=== PATIENT | male | born 1985 | race African-American/Black ===

== ENCOUNTER 2020-10-29 20:41 | Emergency (ER) | payer OTHER ==
[~2020-10-29] VITALS: Ht 193 cm; Wt 117.9 kg
[2020-10-29 21:00] VITALS: BP 152/87
--- NOTE | 2020-10-29 21:00 | NUR ---
ED Nurse Note: Recieved pt from home, herer with c/o bilat ear ringing, pt is currently on antibiotics for ear infection, pt has pain at 5/10 and ringing, states no drainage, dizziness or hearing loss, pt also denies fevers, will resume care as ordered and closely monitor.
[2020-10-29] MEDS ORDERED: NEXAFED30 MG ORAL (21:17)
[2020-10-29] MEDS ORDERED: ROBAXIN-750750 MG PO (21:17)
--- NOTE | 2020-10-29 21:25 | Emergency Room Report ---
History of Present Illness General Chief Complaint: Earache Source: Patient Present Illness HPI Disclaimer: Please note that this report is being documented using [employer] technology. This can lead to erroneous entry secondary to incorrect interpretation by the dictating instrument. HPI: 35-year-old male presents for bilateral tinnitus. Patient reports an increasingly loud ringing in both ears with otherwise normal hearing acuity. He denies head injury but states he does listen to his headphones at loud volume sometimes. Denies barotrauma. Denies excessive caffeine, salicylate intake. Does not take other medications regularly. He was diagnosed with a left-sided ear infection prescribed ciprofloxacin drops which he has taken for the past 6 days. He states pain is resolved but he still hears ringing in his ears. Ringing is somewhat louder on the left side but also present on the right. Denies vertigo, vision changes. Will sometimes have a headache but not currently. He also has a history of TMJ states he grinds his teeth a lot and has a lot of tension in his neck and upper shoulders. Denies fever or chills. Denies nausea or vomiting. Has an appointment by phone with ENT in 3 days. PMH: GERD, TMJ PSH: EGD Allergies: Penicillin Social Hx: Quitting nicotine Allergies: Coded Allergies: PENICILLINS (Verified Allergy, Unknown, 10/29/20) COVID-19 Screening Contact w/high risk pt: No Experienced COVID-19 symptoms?: No COVID-19 Testing performed PER ASSESSMENT NURSE: Yes COVID-19 Screening: Negative COVID-19 COVID-19 Testing Source: [employer] Nursing Documentation-PMH Past Medical History: No History, Except For Review of Systems All Other Systems: negative except mentioned in HPI Physical Exam Vital Signs Date Time Temp Pulse Resp B/P (MAP) Pulse Ox O2 Delivery O2 Flow Rate FiO2 10/29/20 20:48 98.1 86 15 152/87 (108) 94 Room Air General: Awake and alert, no acute distress HEENT: NC/AT. EOMI. hearing acuity intact bilaterally to soft sounds. There is no erythema or edema or fluid in the external canals bilaterally. Tympanic membranes are pearly canseco and nonbulging. There appears to be a small to moderate effusion on the left but no effusion on the right. No mastoid tenderness. Full range of motion of the neck. Resp: Normal work of breathing Skin: Intact. No abrasions, laceration or rash over the exposed skin MSK: Normal tone and bulk. Moving all extremities. No obvious deformity. Neuro: Awake and alert. Mentating appropriately Medical Decision Making Diagnostic Impression: Primary Impression: Bilateral tinnitus Additional Impression: Middle ear effusion ER Course Is a 35-year-old male presenting with several weeks of bilateral tinnitus. Differential includes is not limited to medication toxicity, excessive Phonation, Mnire's disease, labyrinthitis, persistent infection, complications of his TMJ, among others. He is recently been treated for left-sided otitis but I see no signs of active infection. He does appear to have a middle ear effusi on on the left side which may be the cause of some of his symptoms. Also some nasal congestion. Will prescribe Sudafed and some Robaxin for the tense muscles. Also may be related to the patient's TMJ as he states he has had increased stress causing him to grind his teeth more and just be more tense overall. Patient has appointment to speak with the ENT specialist at [facility] in 3 days. Patient is otherwise well-appearing. Feel he stable for outpatient follow-up with ENT in 3 days but did discuss with him that if his symptoms worsen he should return sooner for reevaluation and further work-up. He understands and agrees with the treatment plan will be discharged home. Last Vital Signs Date Time Temp Pulse Resp B/P (MAP) Pulse Ox O2 Delivery O2 Flow Rate FiO2 10/29/20 20:48 98.1 86 15 152/87 (108) 94 Room Air Disposition: HOME, SELF-CARE Condition: Stable Scripts Methocarbamol* (ROBAXIN-750*) 750 Mg Tablet 750 MG PO QID, #28 TAB 0 Refills Prov: Alfonzo Arnold MD 10/29/20 Pseudoephedrine Hcl* (NEXAFED*) 30 Mg Tablet 30 MG ORAL Q6H PRN for congestion for 3 Days, #12 TAB Prov: Alfonzo Arnold MD 10/29/20 Patient Instructions: Tinnitus Additional Instructions: Follow-up with ear nose and throat at your scheduled appointment for this by phone. Please follow-up with your primary care doctor in the next 1 to 3 days to discuss this emergency department visit and for reevaluation. If you have any new or worsening symptoms please return to the emergency department for ree valuation. Please note that this report is being documented using [employer] technology. This can lead to erroneous entry secondary to incorrect interpretation by the dictating instrument. Alfonzo Arnold MD Oct 29, 2020 21:25
[2020-10-29] MEDS ORDERED: Pseudoephedrine 30mg tab ORAL ONE (21:30)
[2020-10-29] MEDS ORDERED: Methocarbamol 750mg tab ORAL ONE (21:30)
[2020-10-29 21:35] VITALS: BP 152/87
--- NOTE | 2020-10-29 21:35 | NUR ---
ER DISCHARGE NOTE: Patient is cleared to be discharged per ERMD, pt is aox4, on room air, with stable vital signs. pt was given dc and prescription instructions, pt was able to verbalize understanding, pt id band removed without complications. pt is able to ambulate with steady gait. pt took all belongings.
== END 2020-10-29 21:35 | disposition home or self-care (01) ==
LOC: EMR 20:57
DX: H93.13 Tinnitus, bilateral (principal); H73.92 Unspecified disorder of tympanic membrane, left ear; Z88.0 Allergy status to penicillin; K21.9 Gastro-esophageal reflux disease without esophagitis; M26.609 Unspecified temporomandibular joint disorder, unspecified side
CPT/HCPCS: 99282